=== PATIENT | male | born 1990 | race Caucasian/White ===

== ENCOUNTER 2019-11-25 00:42 | Inpatient (IN) | payer BC, SELFPAY ==
[~2019-11-25] VITALS: Ht 175.3 cm; Wt 74.8 kg
[~2019-11-25 00:42] MED LIST: CIPR-260 PO; METR500T PO
[2019-11-25 00:45] VITALS: BP_SYST 95
[2019-11-25] MEDS ORDERED: THYR162. PO (01:12)
[2019-11-25] MEDS ORDERED: ACETAMINOPHEN 500 MG TABLET PO ONE (01:15)
[2019-11-25 01:30] LABS: BASOPHILS # (AUTO) 0.1 K/uL (0.0-0.2); BASOPHILS % (AUTO) 0.9 % (0.0-2.0); LYMPHOCYTES # (AUTO) 0.9 K/uL (1.0-5.5); MONOCYTES # (AUTO) 1.2 K/uL (0.0-1.0)
[2019-11-25] MEDS ORDERED: NACL 0.9% 1,000 ML IV ONE (01:30)
[2019-11-25 01:39] LABS: EOSINOPHILS % (AUTO) 0.1 % (0.0-4.0); LYMPHOCYTES % (AUTO) 10.3 % (20.5-51.5); MEAN CORPUSCULAR HEMOGLOBIN 21 pg (27-31); MEAN CORPUSCULAR HGB CONC 31 % (32-36); MEAN CORPUSCULAR VOLUME 65 fL (79.0-98.0); MONOCYTES % (AUTO) 13.3 % (1.7-9.3); NEUTROPHILS # (AUTO) 6.7 K/uL (1.8-7.7); NEUTROPHILS % (AUTO) 75.4 % (40.0-70.0); PLATELET COUNT (AUTO) 579 K/uL (130-430); RED BLOOD CELL COUNT(AUTO) 3.68 MIL/uL (4.2-6.2); RED CELL DISTRIBUTION WIDTH 17.2 % (9.0-15.0); WHITE BLOOD COUNT (AUTO) 8.9 K/uL (4.8-10.8)
[2019-11-25 01:42] LABS: CALCIUM 8.3 mg/dL (8.4-11.0); CREATININE 1.25 mg/dL (0.55-1.30); POTASSIUM 3.2 mmol/L (3.5-5.1)
[2019-11-25 01:43] LABS: HEMOGLOBIN 7.7 g/dL (14.0-18.0)
[2019-11-25] MEDS ORDERED: LEVOFLOXACIN 500 MG/D5W 100 ML IV ONE (01:45)
[2019-11-25] MEDS ORDERED: VANCOMYCIN HCL 1,000 MG in NS 250 ML IV ONE ×2 (01:45→15:00)
[2019-11-25 01:48] LABS: C-REACTIVE PROTEIN QUANT 6.3 mg/dL (0-0.5); TOTAL BILIRUBIN 0.4 mg/dL (0.0-1.0)
[2019-11-25] MEDS ORDERED: VANCOMYCIN HCL 1000 MG/VIAL IV ONE (01:57)
[2019-11-25 04:15] LABS: INFLUENZA A&B ANTIGEN SCREEN NEGATIVE FOR A & B (NEGATIVE); STREPTOCOCCUS A SCREEN (RAPID) NEGATIVE (NEGATIVE)
[2019-11-25 08:52] LABS: THYROID STIMULATING HORMONE 0.01 uIu/mL (0.36-3.74)
[2019-11-25 09:28] VITALS: BP_SYST 106
[2019-11-25] MEDS: NACL 0.9% 1,000 ML IV SCH ×3 (09:36→17:52)
[2019-11-25] MEDS ORDERED: ACETAMINOPHEN 325 MG TABLET PO PRN ×2 (09:45→14:30)
[2019-11-25 12:00] VITALS: BP_SYST 93
[2019-11-25] MEDS ORDERED: ACETAMINOPHEN 325 MG TABLET ONE (14:46)
[2019-11-25 16:05] VITALS: BP_SYST 99
[2019-11-25] MEDS ORDERED: methylPREDNISolone SOD SUCC/PF 62.5 MG/ML VIAL IVP ONE (18:00)
[2019-11-25 19:50] VITALS: BP_SYST 106
[2019-11-25] MEDS ORDERED: FERROUS SULFATE 325 MG TABLET.DR PO SCH (21:00)
[2019-11-26] MEDS ORDERED: SOD FERRIC GLUC COMPLEX/SUC 62.5 MG/5 ML VIAL (FERRLECIT) IV ONE (00:32)
[2019-11-26] MEDS: SOD FERRIC GLUC COMPLEX/SUC 125 MG in NS 100 ML IV SCH ×2 (00:41→23:32)
[2019-11-26] MEDS: NACL 0.9% 1,000 ML IV SCH ×5 (00:41→23:32)
[2019-11-26 00:42] VITALS: BP_SYST 95
[2019-11-26] MEDS: LEVOFLOXACIN 500 MG/D5W 100 ML IV SCH (02:59)
[2019-11-26 07:16] LABS: BASOPHILS % (AUTO) 0.5 % (0.0-2.0); HEMATOCRIT 26.9 % (36-54); HEMOGLOBIN 8.1 g/dL (14.0-18.0); LYMPHOCYTES # (AUTO) 1.3 K/uL (1.0-5.5); LYMPHOCYTES % (AUTO) 23.8 % (20.5-51.5); MEAN CORPUSCULAR HEMOGLOBIN 20 pg (27-31); MEAN CORPUSCULAR HGB CONC 30 % (32-36); MEAN CORPUSCULAR VOLUME 66 fL (79.0-98.0); MONOCYTES # (AUTO) 0.4 K/uL (0.0-1.0); MONOCYTES % (AUTO) 6.4 % (1.7-9.3); NEUTROPHILS # (AUTO) 3.8 K/uL (1.8-7.7); NEUTROPHILS % (AUTO) 69.3 % (40.0-70.0); PLATELET COUNT (AUTO) 527 K/uL (130-430); RED BLOOD CELL COUNT(AUTO) 4.09 MIL/uL (4.2-6.2); RED CELL DISTRIBUTION WIDTH 17.9 % (9.0-15.0); WHITE BLOOD COUNT (AUTO) 5.5 K/uL (4.8-10.8)
[2019-11-26 07:43] LABS: ALBUMIN 2.8 g/dL (3.4-4.8); CALCIUM 8.7 mg/dL (8.4-11.0); CREATININE 0.76 mg/dL (0.55-1.30); POTASSIUM 4.4 mmol/L (3.5-5.1); TOTAL BILIRUBIN 0.2 mg/dL (0.0-1.0)
[2019-11-26 08:00] VITALS: BP_SYST 98
[2019-11-26 08:24] LABS: TOTAL IRON BIND. CAPACITY 354 ug/dL (250-450)
[2019-11-26] MEDS: methylPREDNISolone SOD SUCC/PF 62.5 MG/ML VIAL IVP SCH (08:38)
[2019-11-26 11:19] LABS: ERYTHROCYTE SEDIMENTATION RATE 36 MM/HR (0-15)
[2019-11-26 11:40] LABS: C-REACTIVE PROTEIN QUANT 17.1 mg/dL (0-0.5)
[2019-11-26 12:00] VITALS: BP_SYST 99
[2019-11-26 17:44] VITALS: BP_SYST 101
[2019-11-26 20:00] VITALS: BP_SYST 96
[2019-11-27] VITALS (7 sets, daily range): BP systolic 94–110
[2019-11-27] MEDS: NACL 0.9% 1,000 ML IV SCH ×3 (02:54→22:59)
[2019-11-27] MEDS: LEVOFLOXACIN 500 MG/D5W 100 ML IV SCH (03:44)
[2019-11-27 07:13] LABS: BASOPHILS % (AUTO) 0.3 % (0.0-2.0); EOSINOPHILS % (AUTO) 0.2 % (0.0-4.0); LYMPHOCYTES # (AUTO) 2.3 K/uL (1.0-5.5); LYMPHOCYTES % (AUTO) 21.7 % (20.5-51.5); MEAN CORPUSCULAR HEMOGLOBIN 20 pg (27-31); MEAN CORPUSCULAR HGB CONC 31 % (32-36); MEAN CORPUSCULAR VOLUME 65 fL (79.0-98.0); MONOCYTES # (AUTO) 1.5 K/uL (0.0-1.0); MONOCYTES % (AUTO) 14.4 % (1.7-9.3); NEUTROPHILS # (AUTO) 6.6 K/uL (1.8-7.7); NEUTROPHILS % (AUTO) 63.4 % (40.0-70.0); PLATELET COUNT (AUTO) 500 K/uL (130-430); RED BLOOD CELL COUNT(AUTO) 3.28 MIL/uL (4.2-6.2); RED CELL DISTRIBUTION WIDTH 17.4 % (9.0-15.0); WHITE BLOOD COUNT (AUTO) 10.4 K/uL (4.8-10.8)
[2019-11-27 07:53] LABS: ALBUMIN 2.4 g/dL (3.4-4.8); CALCIUM 8.5 mg/dL (8.4-11.0); CREATININE 0.82 mg/dL (0.55-1.30); POTASSIUM 3.9 mmol/L (3.5-5.1); TOTAL BILIRUBIN 0.1 mg/dL (0.0-1.0)
[2019-11-27 08:12] LABS: FERRITIN 38 ng/mL (30-400); HEPATITIS A AB, IgM Negative (Negative); HEPATITIS B CORE AB, IgM Negative (Negative); HEPATITIS B SURFACE AG Negative (Negative)
[2019-11-27] MEDS: methylPREDNISolone SOD SUCC/PF 62.5 MG/ML VIAL IVP SCH (09:10)
[2019-11-27 09:15] LABS: HEMATOCRIT 21.2 % (36-54); HEMOGLOBIN 6.6 g/dL (14.0-18.0)
[2019-11-27 10:48] LABS: ERYTHROCYTE SEDIMENTATION RATE 19 MM/HR (0-15)
[2019-11-28] VITALS: BP_SYST 108
[2019-11-28] MEDS: SOD FERRIC GLUC COMPLEX/SUC 125 MG in NS 100 ML IV SCH ×2
[2019-11-28] MEDS: LEVOFLOXACIN 500 MG/D5W 100 ML IV SCH (02:54)
[2019-11-28 06:42] LABS: BASOPHILS # (AUTO) 0.1 K/uL (0.0-0.2); BASOPHILS % (AUTO) 0.5 % (0.0-2.0); EOSINOPHILS % (AUTO) 0.3 % (0.0-4.0); HEMATOCRIT 30.5 % (36-54); HEMOGLOBIN 9.5 g/dL (14.0-18.0); LYMPHOCYTES # (AUTO) 4.2 K/uL (1.0-5.5); LYMPHOCYTES % (AUTO) 31.9 % (20.5-51.5); MEAN CORPUSCULAR HEMOGLOBIN 21 pg (27-31); MEAN CORPUSCULAR HGB CONC 31 % (32-36); MEAN CORPUSCULAR VOLUME 69 fL (79.0-98.0); MONOCYTES # (AUTO) 1.5 K/uL (0.0-1.0); MONOCYTES % (AUTO) 11.6 % (1.7-9.3); NEUTROPHILS # (AUTO) 7.3 K/uL (1.8-7.7); NEUTROPHILS % (AUTO) 55.7 % (40.0-70.0); PLATELET COUNT (AUTO) 542 K/uL (130-430); RED BLOOD CELL COUNT(AUTO) 4.43 MIL/uL (4.2-6.2); RED CELL DISTRIBUTION WIDTH 20.3 % (9.0-15.0)
[2019-11-28 07:16] LABS: C-REACTIVE PROTEIN QUANT 4.6 mg/dL (0-0.5); CREATININE 0.92 mg/dL (0.55-1.30); POTASSIUM 3.2 mmol/L (3.5-5.1)
[2019-11-28 08:00] VITALS: BP_SYST 97
[2019-11-28] MEDS: methylPREDNISolone SOD SUCC/PF 62.5 MG/ML VIAL IVP SCH (08:56)
[2019-11-28] MEDS: NACL 0.9% 1,000 ML IV SCH ×3 (08:56→19:20)
[2019-11-28 11:55] VITALS: BP_SYST 110
[2019-11-28] MEDS ORDERED: POTASSIUM CHLORIDE 20 MEQ TAB.PRT.SR PO ONE (15:45)
[2019-11-28 16:00] VITALS: BP_SYST 113
[2019-11-28 20:00] VITALS: BP_SYST 106
[2019-11-29] VITALS: BP_SYST 102
[2019-11-29] MEDS: SOD FERRIC GLUC COMPLEX/SUC 125 MG in NS 100 ML IV SCH ×2
[2019-11-29] MEDS: NACL 0.9% 1,000 ML IV SCH ×4 (01:46→22:09)
[2019-11-29] MEDS: LEVOFLOXACIN 500 MG/D5W 100 ML IV SCH (03:00)
[2019-11-29 06:43] LABS: BASOPHILS # (AUTO) 0.1 K/uL (0.0-0.2); BASOPHILS % (AUTO) 0.5 % (0.0-2.0); EOSINOPHILS # (AUTO) 0.1 K/uL (0.0-0.4); EOSINOPHILS % (AUTO) 0.8 % (0.0-4.0); HEMATOCRIT 29.1 % (36-54); HEMOGLOBIN 8.9 g/dL (14.0-18.0); LYMPHOCYTES # (AUTO) 4.1 K/uL (1.0-5.5); LYMPHOCYTES % (AUTO) 31.9 % (20.5-51.5); MEAN CORPUSCULAR HEMOGLOBIN 21 pg (27-31); MEAN CORPUSCULAR HGB CONC 31 % (32-36); MEAN CORPUSCULAR VOLUME 70 fL (79.0-98.0); MONOCYTES # (AUTO) 1.5 K/uL (0.0-1.0); MONOCYTES % (AUTO) 11.4 % (1.7-9.3); NEUTROPHILS # (AUTO) 7.2 K/uL (1.8-7.7); NEUTROPHILS % (AUTO) 55.4 % (40.0-70.0); PLATELET COUNT (AUTO) 520 K/uL (130-430); RED BLOOD CELL COUNT(AUTO) 4.17 MIL/uL (4.2-6.2); RED CELL DISTRIBUTION WIDTH 20.2 % (9.0-15.0); WHITE BLOOD COUNT (AUTO) 12.9 K/uL (4.8-10.8)
[2019-11-29 07:48] LABS: ALBUMIN 2.6 g/dL (3.4-4.8); C-REACTIVE PROTEIN QUANT 2.9 mg/dL (0-0.5); CALCIUM 8.6 mg/dL (8.4-11.0); CREATININE 0.88 mg/dL (0.55-1.30); POTASSIUM 3.2 mmol/L (3.5-5.1); TOTAL BILIRUBIN 0.3 mg/dL (0.0-1.0)
[2019-11-29 08:43] LABS: ERYTHROCYTE SEDIMENTATION RATE 13 MM/HR (0-15)
[2019-11-29] MEDS: methylPREDNISolone SOD SUCC/PF 62.5 MG/ML VIAL IVP SCH (08:53)
[2019-11-29 08:55] VITALS: BP_SYST 99
[2019-11-29] MEDS: metroNIDAZOLE 500 mg/NS 100 ML IV SCH ×3 (10:15→22:09)
[2019-11-29 12:10] VITALS: BP_SYST 102
[2019-11-29 16:45] VITALS: BP_SYST 109
[2019-11-29] MEDS: POTASSIUM CHLORIDE 20 MEQ TAB.PRT.SR PO ONE ×2 (17:24→17:30)
[2019-11-29 20:40] VITALS: BP_SYST 113
[2019-11-30 00:14] VITALS: BP_SYST 101
[2019-11-30] MEDS: SOD FERRIC GLUC COMPLEX/SUC 125 MG in NS 100 ML IV SCH (00:38)
[2019-11-30] MEDS: NACL 0.9% 1,000 ML IV SCH ×3 (04:03→21:08)
[2019-11-30] MEDS: LEVOFLOXACIN 500 MG/D5W 100 ML IV SCH (04:03)
[2019-11-30] MEDS: metroNIDAZOLE 500 mg/NS 100 ML IV SCH ×3 (06:10→21:06)
[2019-11-30 08:00] VITALS: BP_SYST 105
[2019-11-30 08:12] LABS: BASOPHILS # (AUTO) 0.1 K/uL (0.0-0.2); BASOPHILS % (AUTO) 0.5 % (0.0-2.0); EOSINOPHILS # (AUTO) 0.1 K/uL (0.0-0.4); EOSINOPHILS % (AUTO) 1.1 % (0.0-4.0); HEMATOCRIT 31.2 % (36-54); HEMOGLOBIN 9.7 g/dL (14.0-18.0); LYMPHOCYTES # (AUTO) 4.2 K/uL (1.0-5.5); LYMPHOCYTES % (AUTO) 30.7 % (20.5-51.5); MEAN CORPUSCULAR HEMOGLOBIN 22 pg (27-31); MEAN CORPUSCULAR HGB CONC 31 % (32-36); MEAN CORPUSCULAR VOLUME 71 fL (79.0-98.0); MONOCYTES # (AUTO) 1.5 K/uL (0.0-1.0); MONOCYTES % (AUTO) 11.2 % (1.7-9.3); NEUTROPHILS # (AUTO) 7.7 K/uL (1.8-7.7); NEUTROPHILS % (AUTO) 56.5 % (40.0-70.0); PLATELET COUNT (AUTO) 534 K/uL (130-430); RED BLOOD CELL COUNT(AUTO) 4.41 MIL/uL (4.2-6.2); RED CELL DISTRIBUTION WIDTH 21.3 % (9.0-15.0); WHITE BLOOD COUNT (AUTO) 13.6 K/uL (4.8-10.8)
[2019-11-30 08:22] LABS: ALBUMIN 2.8 g/dL (3.4-4.8); CALCIUM 8.5 mg/dL (8.4-11.0); CREATININE 0.93 mg/dL (0.55-1.30); POTASSIUM 3.6 mmol/L (3.5-5.1); TOTAL BILIRUBIN 0.2 mg/dL (0.0-1.0)
[2019-11-30] MEDS: methylPREDNISolone SOD SUCC/PF 62.5 MG/ML VIAL IVP SCH (09:54)
[2019-11-30 12:17] VITALS: BP_SYST 91
[2019-11-30 17:52] VITALS: BP_SYST 100
[2019-11-30 20:00] VITALS: BP_SYST 110
[2019-12-01] MEDS: SOD FERRIC GLUC COMPLEX/SUC 125 MG in NS 100 ML IV SCH (00:22)
[2019-12-01] MEDS: LEVOFLOXACIN 500 MG/D5W 100 ML IV SCH (02:59)
[2019-12-01] MEDS: metroNIDAZOLE 500 mg/NS 100 ML IV SCH ×2 (05:48→13:12)
[2019-12-01 08:00] VITALS: BP_SYST 119
[2019-12-01] MEDS ORDERED: PREDNISONE 20 MG TABLET PO SCH (09:00)
[2019-12-01 12:30] VITALS: BP_SYST 111
[2019-12-01 12:58] VITALS: BP_SYST 111
[2019-12-01] MEDS ORDERED: FLA250 PO (13:52)
[2019-12-01] MEDS ORDERED: LEVO500T89 PO (13:53)
[2019-12-01] MEDS ORDERED: PRED20TA PO (13:57)
[2019-12-02] MEDS ORDERED: IRON SUCROSE COMPLEX 100 MG in NS 100 ML IV SCH (09:00)
== END 2019-12-01 15:05 | disposition home or self-care (01) | DRG 871 ==
LOC: SED 00:42 → STU 04:19 → SMU 11-30 16:58
PROVIDERS: ADMIT Internal Medicine; ATTEND Internal Medicine
DX: A41.9 Sepsis, unspecified organism (principal); J18.9 Pneumonia, unspecified organism; K51.911 Ulcerative colitis, unspecified with rectal bleeding; A09 Infectious gastroenteritis and colitis, unspecified; E03.9 Hypothyroidism, unspecified; Z20.828 Contact with and (suspected) exposure to other viral communicable diseases; D63.8 Anemia in other chronic diseases classified elsewhere; Z88.1 Allergy status to other antibiotic agents
CPT/HCPCS: 36415; 71045; 80048; 80053; 80061; 80074; 82728; 83540-TC; 83550-TC; 83605; 84439; 84443-TC; 85025; 85379; 85651-TC; 86140; 86403; 86480; 86710; 86886; 86900; 86901; 86920; 87040-TC; 87045-TC; 87081; 87177; 87230-TC; 89055; 93005; 96365; 96366; 96367; 99285; G0378; J1756; J1956; J2916; J2930; J3370; J3490; J7030; J7050; J7512; P9021; U0003-CS